=== PATIENT | male | born 1975 | race Caucasian/White ===

== ENCOUNTER 2024-09-05 03:43 | Inpatient (IN) | payer OTHER ==
[2024-09-05] MEDS ORDERED: LORazepam 2 MG/ML INJ IV PRN (03:59)
--- NOTE | 2024-09-05 04:06 | ED ---
General Adult HPI - General Chief complaint: Alcohol Stated complaint: Alcohol Withdraw, Chest Pain Time Seen by Provider: 09/05/24 03:47 Source: patient, EMS Mode of arrival: EMS - History of Present Illness Initial comments: Dictation was produced using [facility] dictation software. please excuse any grammatical, word or spelling errors. Chief Complaint: 48 alcoholic male presents to the ER for chest pain and alcohol withdrawal History of Present Illness: 48-year-old male who states that he has history of alcohol abuse drinks a pint of liquor intermittently. States he also has some sharp right anterior chest pain. No shortness of breath. Patient [place] any cardiac history states he does have family history. States that he started to feel jittery which is signs of withdrawing. The ROS documented in this emergency department record has been reviewed and confirmed by me. Those systems with pertinent positive or negative responses have been documented in the HPI. All other systems are other negative and/or noncontributory. - Related Data Allergies Allergy/AdvReac Type Severity Reaction Status Date / Time No Known Allergies Allergy Verified 09/05/24 03:49 Review of Systems ROS Statement: Those systems with pertinent positive or pertinent negative responses have been documented in the HPI. ROS Other: All systems not noted in ROS Statement are negative. Past Medical History Additional Past Medical History / Comment(s): Hepatitis B, Pancreatitis History of Any Multi-Drug Resistant Organisms: None Reported Past Surgical History: Appendectomy Past Psychological History: Anxiety, Depression Smoking Status: Current every day smoker Past Alcohol Use History: Heavy Past Drug Use History: None Reported General Exam - General Exam Comments Initial Comments: PHYSICAL EXAM: General Impression: Alert and oriented x3, not in acute distress HEENT: Normocephalic atraumatic, extra-ocular movements intact, pupils equal and reactive to light bilaterally, mucous membranes moist. Cardiovascular: Heart regular rate and rhythm Chest: Able to complete full sentences, no retractions, no tachypnea Abdomen: abdomen soft, non-tender, non-distended, no organomegaly Musculoskeletal: Pulses present and equal in all extremities, no peripheral edema Motor: no focal deficits noted Neurological: CN II-XII grossly intact, no focal motor or sensory deficits noted Skin: Intact with no visualized rashes Psych: Normal affect and mood Course Vital Signs 09/05/24 09/05/24 03:45 05:37 Temperature 98.2 F Pulse Rate 97 102 H Respiratory 18 18 Rate Blood Pressure 138/106 132/87 O2 Sat by Pulse 98 96 Oximetry EKG Findings - EKG Comments: EKG Findings:: My EKG interpretation: Ventricular rate [default value]. No NE prolongation, no QTC prolongation, no ST or T-wave changes noted. Overall, this EKG is unremarkable Medical Decision Making - Medical Decision Making Was pt. sent in by a medical professional or institution (, PA, SPINNING DOFFER, urgent care, hospital, or skilled nursing...) When possible be specific @ -No Did you speak to anyone other than the patient for history (EMS, parent, family, police, friend...)? What history was obtained from this source @ -No Did you review nursing and triage notes (agree or disagree)? Why? @ -I reviewed and agree with nursing and triage notes Were old charts reviewed (outside hosp., previous admission, EMS record, old EKG, old radiological studies, urgent care reports/EKG's, skilled nursing records)? Report findings @ -No old charts were reviewed Differential Diagnosis (chest pain, altered mental status, abdominal pain women, abdominal pain men, vaginal bleeding, musculoskeletal, weakness, fever, dyspnea, syncope, headache, dizziness, GI bleed, back pain, seizure, CVA, palpatations, mental health)? @ -Differential Chest Pain: Stable Angina, Unstable Angina, STEMI, NSTEMI Aortic Dissection, Pneumothorax, Musculoskeletal, Esophageal Spasm GERD, Cholecystitis, Pancreatitis, Zoster, this is not meant to be an all-inclusive list. EKG interpreted by me (3pts min.). @ -See above X-rays interpreted by me (1pt min.). @ -Two-view chest x-ray shows no acute processes CT interpreted by me (1pt min.). @ -None done U/S interpreted by me (1pt. min.). @ -None done What testing was considered but not performed or refused? (CT, X-rays, U/S, labs)? Why? @ -None What meds were considered but not given or refused? Why? @ -None Was smoking cessation discussed for >3mins.? @ -No Were there social determinants of health that impacted care today? How? (Homelessness, low income, unemployed, alcoholism, drug addiction, transportation, low edu. Level, literacy, decrease access to med. care, halfway, rehab)? @ -Alcohol dependence Was there de-escalation of care discussed even if they declined (Discuss DNR or withdrawal of care, Hospice)? DNR status @ -No What co-morbidities impacted this encounter? (DM, HTN, Smoking, COPD, CAD, Cancer, CVA, ARF, Chemo, Hep., AIDS, mental health diagnosis, sleep apnea, morbid obesity)? @ -None Was patient admitted / discharged? Hospital course, mention meds given and route, prescriptions, significant lab abnormalities, going to OR and other pertinent info. @ -48-year-old male presents to the emergency department seeking treatment for alcohol withdrawals. States that he is feeling like he is starting to withdrawal. Patient drinks large amounts of hard liquor daily. Patient also presents with chest pain states that it sharp substernal up to the right. Chest pain is atypical with typical features. Patient does not have any major risk factors. Initial troponin is negative. Labs are unremarkable. Given degree of alcoholism patient will be admitted for inpatient treatment of alcohol w ithdrawal. Case discussed with hospitalist for admission. Patient given aspirin for his chest pain. Cardiology consulted Did you discuss the management of the patient with other professionals (prof mahogany i.e. , PA, SPINNING DOFFER, lab, RT, psych nurse, medical social worker, walking dragline oiler, teacher, medical officer, community case manager)? Give summary @ -See above Was critical care preformed (if so, how long)? @ -No Undiagnosed new problem with uncertain prognosis? @ -No Drug Therapy requiring intensive monitoring for toxicity (Heparin, Nitro, Insulin, Cardizem)? @ -No Were any procedures done? @ -No Diagnosis/symptom? Acute, or Chronic, or Acute on Chronic? Uncomplicated (without systemic symptoms) or Complicated (systemic symptoms)? @ -Chest pain, alcohol withdrawal Side effects of treatment? @ -No Exacerbation, Progression, or Severe Exacerbation? @ -No Poses a threat to life or bodily function? How? (Chest pain, [place], [place], pneumonia, PE, COPD, DKA, ARF, appy, cholecystitis, CVA, Diverticulitis, Homicidal, Suicidal, threat to staff... and all critical care pts) @ -yes - Lab Data Result diagrams: 09/05/24 04:11 09/05/24 04:11 Lab Results 09/05/24 09/05/24 09/05/24 Range/Units 04:11 04:11 04:11 WBC 6.50 (4.50-10.00) 10*3/uL RBC 4.88 (4.40-5.60) 10*6/uL Hgb 13.6 (13.0-17.0) g/dL Hct 40.7 (39.6-50.0) % MCV 83.4 (80.0-97.0) fL MCH 27.9 (27.0-32.0) pg MCHC 33.4 (32.0-37.0) g/dL Plt Count 310 (140-440) 10*3/uL MPV 9.6 (9.5-12.2) fL Immature Gran % (Auto) 0.2 % Neutrophils % 52.0 % Lymphocytes % 36.3 % Monocytes % 9.1 % Eosinophils % 1.2 % Basophils % 1.2 % Immature Gran # 0.01 (0.00-0.04) 10*3/uL Neutrophils # 3.38 (1.80-7.70) 10*3/uL Lymphocytes # 2.36 (0.90-5.00) 10*3/uL Monocytes # 0.59 (0.20-1.00) 10*3/uL Eosinophils # 0.08 (0.04-0.35) 10*3/uL Basophils # 0.08 (0.00-0.10) 10*3/uL Sodium 141 (137-145) mmol/L Potassium 3.4 L (3.5-5.1) mmol/L Chloride 99 (98-107) mmol/L Carbon Dioxide 24 (22-30) mmol/L Anion Gap 18 mmol/L BUN 8 L (9-20) mg/dL Creatinine 0.59 L (0.66-1.25) mg/dL Est GFR (CKD-EPI)AfAm >90 (>60 ml/min/1.73 sqM) Est GFR (CKD-EPI)NonAf >90 (>60 ml/min/1.73 sqM) Glucose 117 H (74-99) mg/dL Calcium 10.0 (8.4-10.2) mg/dL Magnesium 1.4 L (1.6-2.3) mg/dL Troponin I <0.012 (0.000-0.034) ng/mL Serum Alcohol 208 H* mg/dL Disposition Clinical Impression: Chest pain, Alcohol withdrawal Disposition: ADMITTED IP TO THIS HOSP Condition: Fair Referrals: None,Stated [Primary Care Provider] - 1-2 days Decision Time: 06:07
[2024-09-05 04:27] LABS: Basophils # (A) 0.08 10*3/uL (0.00-0.10); Basophils % (A) 1.2 %; Eosinophils # (A) 0.08 10*3/uL (0.04-0.35); Eosinophils % (A) 1.2 %; HCT 40.7 % (39.6-50.0); HGB 13.6 g/dL (13.0-17.0); Lymphocytes # (A) 2.36 10*3/uL (0.90-5.00); Lymphocytes % (A) 36.3 %; MCH 27.9 pg (27.0-32.0); MCHC 33.4 g/dL (32.0-37.0); MCV 83.4 fL (80.0-97.0); Mean Platelet Volume 9.6 fL (9.5-12.2); Monocytes # (A) 0.59 10*3/uL (0.20-1.00); Monocytes % (A) 9.1 %; Neutrophils # (A) 3.38 10*3/uL (1.80-7.70); Platelet Count 310 10*3/uL (140-440); RBC 4.88 10*6/uL (4.40-5.60); RDW 17.5 % (11.5-14.5)
[2024-09-05 04:40] LABS: African American GFR (CKD) >90 (>60 ml/min/1.73 sqM); Anion Gap 18 mmol/L; Blood Urea Nitrogen 8 mg/dL (9-20); Carbon Dioxide 24 mmol/L (22-30); Chloride 99 mmol/L (98-107); Glucose 117 mg/dL (74-99); Magnesium 1.4 mg/dL (1.6-2.3); Non-African American GFR(CKD) >90 (>60 ml/min/1.73 sqM); Potassium 3.4 mmol/L (3.5-5.1); Sodium 141 mmol/L (137-145)
[2024-09-05 04:45] LABS: Alcohol 208 mg/dL
[2024-09-05] MEDS: ASPIRIN 81 MG PO STA (05:36)
[2024-09-05] MEDS: LORazepam 2 MG/ML INJ IV PRN ×2 (05:41→11:23)
[2024-09-05] MEDS ORDERED: NITROGLYCERIN SL TABS 0.4 MG TAB SUBLINGUAL PRN (06:03)
[2024-09-05] MEDS: MAGNESIUM OXIDE 400 MG TAB PO STA (06:21)
--- NOTE | 2024-09-05 06:40 | XR ---
EXAMINATION TYPE: XR chest 2V DATE OF EXAM: 09/05/2024 5:49 AM COMPARISON: None TECHNIQUE: XR chest 2V Frontal and lateral views of the chest. CLINICAL INDICATION:Male, 48 years old with history of chest pain; FINDINGS: Lungs/Pleura: There is no evidence of pleural effusion, focal consolidation, or pneumothorax. Pulmonary vascularity: Unremarkable. Heart/mediastinum: Cardiomediastinal silhouette is unremarkable. Musculoskeletal: No acute osseous pathology. IMPRESSION: No acute cardiopulmonary disease/process. [facility], , 09/05/2024 6:37 AM
--- NOTE | 2024-09-05 12:02 | P.CRDCN ---
History of Present Illness History of present illness: HISTORY OF PRESENT ILLNESS: This is a 48-year-old male with a past medical history significant for alcohol abuse and nicotine dependence. Patient does not follow with a minute clerk. We h ave been asked to see the patient in consultation for chest pain. Patient examined at the bedside in the emergency room. Patient states yesterday he was laying in bed at about 8:30 at night when he began to have chest pain. He states that the pain was worse with swallowing. The pain is not worse with exertion. He denied any radiation of the pain. Denied any shortness of breath. He does report having nausea and vomiting for the past 2 days as well. He is a current cigarette smoker. He also reports drinking 1 pint of liquor daily. Patient was found to be acutely intoxicated upon admission with an alcohol level of 208. DIAGNOSTICS: - EKG reveals sinus mechanism with no signs of acute ischemia. - Chest xray negative for acute process - Laboratory data: WBC 6.50. Hemoglobin 13.6. Platelet count 310. Sodium 141. Potassium 3.4. BUN 8. Creatinine 0.59. Magnesium 1.4. Troponin negative x 2. - Current home cardiac medications include none. - No previous echocardiogram, stress test, or cardiac catheterization available in EMR for review REVIEW OF SYSTEMS: At the time of my exam: CONSTITUTIONAL: Denies fever or chills. HEENT: Denies blurred vision, vision changes, or eye pain. Denies hemoptysis CARDIOVASCULAR: Denies chest pain. Denies orthopnea. Denies PND. Denies palpi tations RESPIRATORY: Denies shortness of breath. GASTROINTESTINAL: Denies abdominal pain. Denies nausea or vomiting. HEMATOLOGIC: Denies bleeding disorders. GENITOURINARY: Denies any blood in urine. SKIN: Denies pruitis. Denies rash. PHYSICAL EXAM: VITAL SIGNS: Reviewed. GENERAL: Well-developed in no acute distress. HEENT: Head is normocephalic. Pupils are equal, round. Sclerae anicteric. Mucous membranes of the mouth are moist. Neck supple. No JVD or thyromegaly LUNGS: Respirations even and unlabored. Lungs essentially clear to auscultation bilaterally. HEART: Regular rate and rhythm. S1 and S2 heard. ABDOMEN: Soft. Nondistended. Nontender. EXTREMITIES: Normal range of motion. No clubbing or cyanosis. Peripheral pulses intact. No lower extremity edema NEUROLOGIC: Awake and alert. Oriented x 3. ASSESSMENT: Acute alcohol intoxication Chest pain, likely GI in etiology secondary to nausea and vomiting/gastrointestinal irritation from EtOH use, acute coronary syndrome ruled out History of alcohol abuse Nicotine dependence Hypomagnesemia PLAN: An acute coronary event has been ruled out Obtain 2D echo to assess cardiac structure and function Recommend abstinence from alcohol Smoking cessation encouraged No plans for stress testing or cardiac catheterization at this time Patient may be discharged from a cardiac standpoint pending echo results Nurse practitioner note has been reviewed by physician. Signing provider agrees with the documented findings, assessment, and plan of care documented by MUSIC TYPOGRAPHER as a scribe. Past Medical History Additional Past Medical History / Comment(s): Hepatitis B, Pancreatitis History of Any Multi-Drug Resistant Organisms: None Reported Past Surgical History: Appendectomy Past Psychological History: Anxiety, Depression Smoking Status: Current every day smoker Past Alcohol Use History: Heavy Past Drug Use History: None Reported Medications and Allergies Home Medications Medication Instructions Recorded Confirmed Type Emtricitabine/Tenofovir (Tdf) 1 tab PO DAILY 09/05/24 09/05/24 History [Truvada 200 mg-300 mg Tablet] Mirtazapine [Remeron] 15 mg PO HS 09/05/24 09/05/24 History Sertraline [Zoloft] 100 mg PO DAILY 09/05/24 09/05/24 History Thiamine [Vitamin B-1] 100 mg PO DAILY 09/05/24 09/05/24 History busPIRone HCL 5 mg PO BID 09/05/24 09/05/24 History Allergies Allergy/AdvReac Type Severity Reaction Status Date / Time No Known Allergies Allergy Verified 09/05/24 08:45 Physical Exam Vitals: Vital Signs Temp Pulse Resp BP Pulse Ox 09/05/24 07:38 83 16 126/82 97 09/05/24 06:23 103 H 18 134/93 97 09/05/24 05:37 102 H 18 132/87 96 09/05/24 03:45 98.2 F 97 18 138/106 98 Intake and Output 09/04/24 09/05/24 09/05/24 22:59 06:59 14:59 Other: Weight 56.699 kg Results 09/05/24 04:11 09/05/24 04:11 Cardiac Enzymes 09/05/24 09/05/24 Range/Units 04:11 06:16 Troponin I <0.012 <0.012 (0.000-0.034) ng/mL CBC 09/05/24 Range/Units 04:11 WBC 6.50 (4.50-10.00) 10*3/uL RBC 4.88 (4.40-5.60) 10*6/uL Hgb 13.6 (13.0-17.0) g/dL Hct 40.7 (39.6-50.0) % Plt Count 310 (140-440) 10*3/uL Comprehensive Metabolic Panel 09/05/24 Range/Units 04:11 Sodium 141 (137-145) mmol/L Potassium 3.4 L (3.5-5.1) mmol/L Chloride 99 (98-107) mmol/L Carbon Dioxide 24 (22-30) mmol/L BUN 8 L (9-20) mg/dL Creatinine 0.59 L (0.66-1.25) mg/dL Glucose 117 H (74-99) mg/dL Calcium 10.0 (8.4-10.2) mg/dL Current Medications Generic Name Dose Route Start Last Admin Trade Name Freq PRN Reason Stop Dose Admin Aspirin 325 mg 09/06/24 09:00 Aspirin 325 Mg Tab PO DAILY MICHAEL Lorazepam 1 mg 09/05/24 03:59 Lorazepam 2 Mg/Ml Inj IV Q1HR PRN CIWA 10 to 15 Lorazepam 1 mg 09/05/24 03:59 09/05/24 07:36 Lorazepam 2 Mg/Ml Inj IV 1 mg Q2HR PRN Administration CIWA 8 or 9 Lorazepam 2 mg 09/05/24 03:59 Lorazepam 2 Mg/Ml Inj IV 09/07/24 03:59 Q10M PRN CIWA 16 or higher Nitroglycerin 0.4 mg 09/05/24 06:03 Nitroglycerin Sl Tabs 0.4 Mg Tab SUBLINGUAL Q5M PRN Chest Pain Intake and Output 09/04/24 09/05/24 09/05/24 22:59 06:59 14:59 Other: Weight 56.699 kg 09/05/24 04:11 09/05/24 04:11
--- NOTE | 2024-09-05 13:54 | P.HPIM ---
History of Present Illness H&P Date: 09/05/24 Chief Complaint: Alcohol withdrawal and Chest pain History of Presenting Illness: Patient is a 48-year-old male with a past medical history of daily alcohol abuse, chronic pancreatitis, hepatitis B, anxiety with depression, and nicotine dependence. He presented to the emergency department with a chief complaint of alcohol withdrawal. Patient reports drinking a pint of liquor daily and presented to our facility with assistance with alcohol withdrawal and reports of chest pain. Patient reports feeling anxious and jittery and reports pain to midsternal and right anterior chest intermittently. He denies having any headache, lightheadedness, dizziness, changes in vision or hearing, palpitations, shortness of breath, cough or congestion, abdominal pain, nausea, vomiting, or experiencing any numbness/tingling/weakness in his extremities. Patient does report to drinking a pint of liquor daily. Requesting assistance in placement at [facility]. Patient provided with contact information and instructed that he must make phone call himself for rehab placement per [facility] guidelines. Upon arrival to our facility, patient underwent evaluation in the emergency department. Vital signs upon arrival show blood pressure 138/106, heart rate 97, respiratory rate 18, temp 98.2 F, SpO2 of 98% on room air. EKG was completed showing normal sinus rhythm at 89 bpm no significant T wave or ST abnormality showing no signs of acute ischemia upon personal review and interpretation. Chest x-ray completed negative for acute cardiopulmonary pro cess. Labs completed and reviewed. CBC unremarkable. BMP showing hypokalemia with potassium of 3.4. Blood glucose was 117. Calcium 10. Magnesium was low at 1.4. Troponin was negative at less than 0.012. Serum alcohol level was 208. Patient admitted under services with consult to cardiology. Review of systems: Pertinent positives and negatives as discussed in HPI, a complete review of sy stems was performed and all other systems are negative. Physical exam: Vital signs reviewed and stable. General: Nontoxic, no distress and appears stated age. Derm: Skin warm and dry, normal coloration for ethnicity. Head: Atraumatic, normocephalic and symmetric. Eyes: EOM's intact, no lid lag, and anicteric sclera Mouth: no lip lesions, mucus membranes moist Cardiovascular: regular rate and rhythm with normal S1S2, no murmur, positive posterior tibial pulses bilaterally, and cap refill < 2 seconds. Lungs: Respirations even, regular, and unlabored on room air. Lungs CTA bilaterally, no rhonchi, no rales, no wheezing, and no accessory muscle usage. Abdominal: soft, nontender to palpation, no guarding, no appreciable organomegaly Ext: ROM intact. No gross muscle atrophy, no edema, no contractures Neuro: Speech clear, face symmetrical and CN II-XII grossly intact with no noted focal neuro deficits Psych: Alert and oriented to person, place, time, and situation. Appropriate and pleasant affect. Assessment and Plan of Care: Chest pain, rule out acute coronary event -Cardiology consulted, appreciate recommendations -Telemetry monitoring -Trend troponins -Cardiac diet, NPO at midnight -Aspirin 81 mg daily, atorvastatin, -Lipid profile with a.m. labs. -Echocardiogram Alcohol withdrawal Alcohol intoxication in active alcoholic upon arrival Hypokalemia Hypomagnesemia -Order placed for monitoring of CIWA scores and patient to be medicated with Ativan 0.5 mg every 4 hours as needed for CIWA score of 4-5, Ativan 1 mg every 4 hours for CIWA score of 6-7, Ativan 2 mg every 3 hours CIWA score of 8-9, and Ativan 2 mg every 2 hours forr CIWA score of 10 or greater. -Continuous IV hydration. -Thiamine 100 mg daily, and Multivitamin daily, and Folate 1 mg daily -Seizure, fall, aspiration, and elopement precautions in place. -Continued close monitoring of electrolytes and replace as needed. -Telemetry monitoring. Data and imaging reviewed: As stated above in HPI. The patient is admitted with an anticipated less than 2 midnight stay for evaluation of chest pain, etoh withdrawal CODE STATUS: Full code DVT prophylaxis: Lovenox Discussed with: Pt, RN, and ED physician Anticipated discharge date: 24 to [address]: Home Patient was seen independently by Nurse Practitioner. This document was prepared using [employer] dictation software. Please allow for errors in inspection and testing supervisor while rare they do occur. Shyam Nayak NP rendered care for this patient independently, reviewed the findings and plan as documented in the note above and agree with plan. I did not physically speak with or examine the patient on this date. Past Medical History Additional Past Medical History / Comment(s): Hepatitis B, Pancreatitis History of Any Multi-Drug Resistant Organisms: None Reported Past Surgical History: Appendectomy Past Psychological History: Anxiety, Depression Smoking Status: Current every day smoker Past Alcohol Use History: Heavy Past Drug Use History: None Reported Medications and Allergies Home Medications Medication Instructions Recorded Confirmed Type Emtricitabine/Tenofovir (Tdf) 1 tab PO DAILY 09/05/24 09/05/24 History [Truvada 200 mg-300 mg Tablet] Mirtazapine [Remeron] 15 mg PO HS 09/05/24 09/05/24 History Sertraline [Zoloft] 100 mg PO DAILY 09/05/24 09/05/24 History Thiamine [Vitamin B-1] 100 mg PO DAILY 09/05/24 09/05/24 History busPIRone HCL 5 mg PO BID 09/05/24 09/05/24 History Allergies Allergy/AdvReac Type Severity Reaction Status Date / Time No Known Allergies Allergy Verified 09/05/24 08:45 Physical Exam Vitals: Vital Signs Temp Pulse Resp BP Pulse Ox 09/05/24 07:38 83 16 126/82 97 09/05/24 06:23 103 H 18 134/93 97 09/05/24 05:37 102 H 18 132/87 96 09/05/24 03:45 98.2 F 97 18 138/106 98 Intake and Output 09/04/24 09/05/24 09/05/24 22:59 06:59 14:59 Other: Weight 56.699 kg Results CBC & Chem 7: 09/05/24 04:11 09/05/24 04:11 Labs: Abnormal Lab Results - Last 24 Hours (Table) 09/05/24 Range/Units 04:11 Potassium 3.4 L (3.5-5.1) mmol/L BUN 8 L (9-20) mg/dL Creatinine 0.59 L (0.66-1.25) mg/dL Glucose 117 H (74-99) mg/dL Magnesium 1.4 L (1.6-2.3) mg/dL Serum Alcohol 208 H* mg/dL
[2024-09-05] MEDS: THIAMINE 100 MG/ML 2 ML VIAL IM STA (15:21)
[2024-09-05] MEDS: FOLIC ACID 1 MG TAB PO SCH (15:36)
[2024-09-05] MEDS: MULTIVITAMINS, THERA 1 EACH TAB PO SCH (15:36)
[2024-09-06] MEDS ORDERED: LORazepam 1 MG/0.5 ML VIAL IV PRN ×3 (00:34→00:35)
[2024-09-06] MEDS: LORazepam 0.5 MG TAB PO PRN (01:52)
[2024-09-06] MEDS: ACETAMINOPHEN TAB 325 MG TAB PO PRN (05:57)
--- NOTE | 2024-09-06 07:18 | CA ---
Transthoracic Echo Report Name: Donovan Gutierrez Age: 48 Gender: M : 1975 Exam Date: 09/05/2024 10:31 Exam Location: [facility] Ht (in): 67 Wt (lb): 125 Ordering Physician: Adry Winslow Attending/Referring Phys: [id number], Goldy [employer] Manager Mayuri Simpson, MAK Procedure CPT: Indications: LV function, CP Cardiac Hx: Technical Quality: Good Contrast 1: Total Dose (mL): Contrast 2: Total Dose (mL): MEASUREMENTS (Male / Female) Normal Values 2D ECHO LV Diastolic Diameter PLAX 4.4 cm 4.2 - 5.9 / 3.9 - 5.3 cm LV Systolic Diameter PLAX 3.3 cm IVS Diastolic Thickness 0.8 cm 0.6 - 1.0 / 0.6 - 0.9 cm LVPW Diastolic Thickness 0.9 cm 0.6 - 1.0 / 0.6 - 0.9 cm LV Relative Wall Thickness 0.4 RV Internal Dim ED PLAX 2.5 cm LVOT Diameter 1.7 cm LA Systolic Diameter LX 2.5 cm 3.0 - 4.0 / 2.7 - 3.8 cm LV Diastolic Volume MOD BP 84.3 cm??? 67 - 155 / 56 - 104 cm??? LV Systolic Volume MOD BP 46.3 cm??? 22 - 58 / 19 - 49 cm??? LV Ejection Fraction MOD BP 45.0 % >= 55 % LV Cardiac Index MOD BP 2093.3 cm???/min???m??? LV Diastolic Volume MOD 4C 83.7 cm??? LV Systolic Volume MOD 4C 47.7 cm??? LV Ejection Fraction MOD 4C 43.0 % LV Cardiac Index MOD 4C 1986.2 cm???/min???m??? LV Diastolic Length 4C 8.3 cm LV Systolic Length 4C 7.0 cm LV Diastolic Volume MOD 2C 81.4 cm??? LV Systolic Volume MOD 2C 44.9 cm??? LV Ejection Fraction MOD 2C 44.9 % LV Cardiac Index MOD 2C 2017.3 cm???/min???m??? LV Diastolic Length 2C 7.9 cm LV Systolic Length 2C 7.0 cm LA Volume 33.1 cm??? 18 - 58 / 22 - 52 cm??? LA Volume Index 20.3 cm???/m??? 16 - 28 cm???/m??? DOPPLER MV Area PHT 3.3 cm??? Mitral E Point Velocity 41.1 cm/s Mitral A Point Velocity 56.0 cm/s Mitral E to A Ratio 0.7 MV Deceleration Time 229.0 ms TR Peak Velocity 169.7 cm/s TR Peak Gradient 11.5 mmHg FINDINGS Left Ventricle Left ventricular ejection fraction is estimated at 50-55 %. Left ventricular cavity size normal. Right Ventricle Normal right ventricular size and function. Right ventricular systolic pressure within normal limits. Right Atrium Normal right atrial size. Left Atrium Normal left atrial size. Mitral Valve Mitral valve thickened. No mitral stenosis. Trace mitral regurgitation. Aortic Valve Trileaflet aortic valve. No aortic stenosis. No aortic regurgitation. Tricuspid Valve Structurally normal tricuspid valve. No tricuspid stenosis. Trace to mild tricuspid regurgitation. Pulmonic Valve Structurally normal pulmonic valve. No pulmonic stenosis. Trace pulmonic regurgitation. Pericardium No pericardial effusion. Aorta Normal size aortic root and proximal ascending aorta. CONCLUSIONS 1. Left ventricular systolic function borderline normal 2. Trace mitral with trace to mild tricuspid regurgitation Previewed by: Dr. Will Mckeon MD (Electronically Signed) Final Date: 06 September 2024 07:17
[2024-09-06 07:45] VITALS: BP 136/81; PULSE 62; RESP 19; TEMP 98.3
[2024-09-06] MEDS: ENOXAPARIN 40 MG/0.4 ML SYRINGE SQ SCH (08:01)
[2024-09-06] MEDS: THIAMINE 100 MG TAB PO SCH (08:01)
[2024-09-06] MEDS: LORazepam 1 MG TAB PO PRN (08:01)
[2024-09-06 08:15] LABS: Chol/HDL Ratio 2.16 Ratio; LDL Cholesterol,Calculated 58.6 mg/dL (0.0-131.0); VLDL Calculation 9.48 mg/dL (5.00-40.00)
[2024-09-06] MEDS ORDERED: ASPIRIN 325 MG TAB PO SCH (09:00)
--- NOTE | 2024-09-06 10:29 | P.DS ---
Providers Date of admission: 09/05/24 06:04 Expected date of discharge: 09/06/24 Attending physician: Osiris Pantoja MD Consults: 09/05/24 06:03 Consult Physician Urgent Consulting Provider: Nicholas Esparza Consult Reason/Comments: chest pain Do you want consulting provider notified?: Yes Primary care physician: Stated None Hospital Course: Discharge Diagnosis: Chest pain, acute coronary event ruled out. Alcohol withdrawal Alcohol intoxication in active alcoholic upon arrival Hypokalemia. Replaced. Hypomagnesemia. Replaced Hospital Course: Patient is a 48-year-old male with a past medical history of daily alcohol abuse, chronic pancreatitis, hepatitis B, anxiety with depression, and nicotine dependence. He presented to the emergency department with a chief complaint of alcohol withdrawal. Patient reports drinking a pint of liquor daily and presented to our facility with assistance with alcohol withdrawal and reports of chest pain. Patient reports feeling anxious and jittery and reports pain to midsternal and right anterior chest intermittently. He denies having any headache, lightheadedness, dizziness, changes in vision or hearing, palpitations, shortness of breath, cough or congestion, abdominal pain, nausea, vomiting, or experiencing any numbness/tingling/weakness in his extremities. Patient does report to drinking a pint of liquor daily. Requesting assistance in placement at [facility]. Patient provided with contact information and instructed that he must make phone call himself for rehab placement per [facility] guidelines. Upon arrival to our facility, patient underwent evaluation in the emergency department. Vital signs upon arrival show blood pressure 138/106, heart rate 97, respiratory rate 18, temp 98.2 F, SpO2 of 98% on room air. EKG was completed showing normal sinus rhythm at 89 bpm no significant T wave or ST abnormality showing no signs of acute ischemia upon personal review and interpretation. Chest x-ray completed negative for acute cardiopulmonary process. Labs completed and reviewed. CBC unremarkable. BMP showing hypokalemia with potassium of 3.4. Blood glucose was 117. Calcium 10. Magnesium was low at 1.4. Troponin was negative at less than 0.012. Serum alcohol level was 208. Patient admitted under services with consult to cardiology. Troponins trended overnight all negative at less than 0.012 x 3 draws. Echocardiogram completed showing preserved EF of 50 to 55% with trace mitral and tricuspid regurgitation. Patient cleared from cardiac perspective for discharge. Patient is clinically sober and requesting discharge. Patient provided with information on [facility] as well as outpatient resources available to him. Patient strongly encouraged to avoid any and all alcohol use. Physical exam: Vital signs reviewed and stable. General: Nontoxic, no distress and appears stated age. Derm: Skin warm and dry, normal coloration for ethnicity. Head: Atraumatic, normocephalic and symmetric. Eyes: EOM's intact, no lid lag, and anicteric sclera Mouth: no lip lesions, mucus membranes moist Cardiovascular: regular rate and rhythm with normal S1S2, no murmur, positive posterior tibial pulses bilaterally, and cap refill < 2 seconds. Lungs: Respirations even, regular, and unlabored on room air. Lungs CTA bilaterally, no rhonchi, no rales, no wheezing, and no accessory muscle usage. Abdominal: soft, nontender to palpation, no guarding, no appreciable organomegaly Ext: ROM intact. No gross muscle atrophy, no edema, no contractures Neuro: Speech clear, face symmetrical and CN II-XII grossly intact with no noted focal neuro deficits Psych: Alert and oriented to person, place, time, and situation. Appropriate and pleasant affect. A total of 31 minutes of time were spent preparing this complex discharge summary. Pt was discharged on 09/06/24 at 10:28 AM. Patient was seen independently by Nurse Practitioner. This document was prepared using [employer] dictation software. Please allow for errors in processing technologist while rare they do occur. Shyam Nayak NP rendered care for this patient independently, reviewed the findings and plan as documented in the note above. I did not physically speak with or examine the patient on this date. Patient Condition at Discharge: Stable Plan - Discharge Summary Discharge Rx Participant: Yes New Discharge Prescriptions: New Folic Acid 1 mg PO DAILY 30 Days #30 tab Multivitamins, Thera [Multivitamin (formulary)] 1 each PO DAILY 30 Days #30 tab Continue busPIRone HCL 5 mg PO BID Mirtazapine [Remeron] 15 mg PO HS Sertraline [Zoloft] 100 mg PO DAILY Thiamine [Vitamin B-1] 100 mg PO DAILY Emtricitabine/Tenofovir (Tdf) [Truvada 200 mg-300 mg Tablet] 1 tab PO DAILY Discharge Medication List Emtricitabine/Tenofovir (Tdf) [Truvada 200 mg-300 mg Tablet] 1 tab PO DAILY 09/05/24 [History] Mirtazapine [Remeron] 15 mg PO HS 09/05/24 [History] Sertraline [Zoloft] 100 mg PO DAILY 09/05/24 [History] Thiamine [Vitamin B-1] 100 mg PO DAILY 09/05/24 [History] busPIRone HCL 5 mg PO BID 09/05/24 [History] Folic Acid 1 mg PO DAILY 30 Days #30 tab 09/06/24 [Rx] Multivitamins, Thera [Multivitamin (formulary)] 1 each PO DAILY 30 Days #30 tab 09/06/24 [Rx] Follow up Appointment(s)/Referral(s): [facility] [NON-STAFF] - 1 Week Patient Instructions/Handouts: Abuse of Alcohol (DC), Alcohol Withdrawal (DC) Discharge/Stand Alone Forms: AA Meetings [facility] Resources, Outpatient Counseling, In Substance Abuse Facilities Discharge Disposition: HOME SELF-CARE
--- NOTE | 2024-09-06 11:42 | P.PN ---
Subjective HISTORY OF PRESENT ILLNESS: This is a 48-year-old male with a past medical history significant for alcohol abuse and nicotine dependence. 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 We have been asked to see the patient in consultation for chest pain. Patient examined at the bedside in the emergency room. Patient states yesterday he was laying in bed at about 8:30 at night when he began to have chest pain. He states that the pain was worse with swallowing. The pain is not worse with exertion. He denied any radiation of the pain. Denied any shortness of breath. He does report having nausea and vomiting for the past 2 days as well. He is a current cigarette smoker. He also reports drinking 1 pint of liquor daily. Patient was found to be acutely intoxicated upon admission with an alcohol level of 208. DIAGNOSTICS: - EKG reveals sinus mechanism with no signs of acute ischemia. - Chest xray negative for acute process - Laboratory data: WBC 6.50. Hemoglobin 13.6. Platelet count 310. Sodium 141. Potassium 3.4. BUN 8. Creatinine 0.59. Magnesium 1.4. Troponin negative x 2. - Current home cardiac medications include none. - No previous echocardiogram, stress test, or cardiac catheterization available in EMR for review 09/06/2024 Patient examined this morning at bedside. Patient complains of feeling anxious. He denies any chest pain or pressure. Denies any shortness of breath. Denies any further episodes of nausea or vomiting. Echocardiogram completed revealing ejection fraction 50 to 55%, trace MR, trace TR. PHYSICAL EXAM: VITAL SIGNS: Reviewed. GENERAL: Well-developed in no acute distress. HEENT: Head is normocephalic. Pupils are equal, round. Sclerae anicteric. Mucous membranes of the mouth are moist. Neck supple. No JVD or thyromegaly LUNGS: Respirations even and unlabored. Lungs essentially clear to auscultation bilaterally. HEART: Regular rate and rhythm. S1 and S2 heard. ABDOMEN: Soft. Nondistended. Nontender. EXTREMITIES: Normal range of motion. No clubbing or cyanosis. Peripheral pu lses intact. No lower extremity edema NEUROLOGIC: Awake and alert. Oriented x 3. ASSESSMENT: Acute alcohol intoxication Chest pain, likely GI in etiology secondary to nausea and vomiting/gastroint estinal irritation from EtOH use, acute coronary syndrome ruled out History of alcohol abuse Nicotine dependence Hypomagnesemia PLAN: Recommend abstinence from alcohol Smoking cessation encouraged No plans for stress testing or cardiac catheterization at this time Patient is stable for discharge home today from a cardiac standpoint Nurse practitioner note has been reviewed by physician. Signing provider agrees with the documented findings, assessment, and plan of care documented by [employer] as a scribe. Objective - Vital Signs Vital signs: Vital Signs Temp 98.3 F 09/06/24 07:23 Pulse 62 09/06/24 07:23 Resp 19 09/06/24 07:23 BP 136/81 09/06/24 07:23 Pulse Ox 100 09/06/24 07:23 FiO2 Intake & Output 09/05/24 09/06/24 09/06/24 18:59 06:59 18:59 Intake Total 1000 Balance 1000 Weight 56.699 kg Intake: Oral 1000 Other: Voiding Method Toilet Toilet # Voids 1 - Labs CBC & Chem 7: 09/05/24 04:11 09/05/24 04:11
== END 2024-09-06 11:50 | disposition home or self-care (01) | DRG 775 ==
LOC: EC 03:43 → 6NMEDSUR 06:04
PROVIDERS: ADMIT Internal Medicine; ATTEND Internal Medicine
DX: F10.229 Alcohol dependence with intoxication, unspecified (principal); F10.239 Alcohol dependence with withdrawal, unspecified; E83.42 Hypomagnesemia; F17.210 Nicotine dependence, cigarettes, uncomplicated; E87.6 Hypokalemia; K31.89 Other diseases of stomach and duodenum; Y90.7 Blood alcohol level of 200-239 mg/100 ml; Z79.899 Other long term (current) drug therapy
CPT/HCPCS: 36415; 71046; 80048; 80061; 80320; 83735; 84484; 85025; 93005; 93306; 96372; 96374; 96376; 99285